=== PATIENT | female | born 1995 | race Caucasian/White ===

== ENCOUNTER 2018-01-17 08:41 | Day surgery (SDC) | payer BC, OTHER ==
[~2018-01-17] VITALS: Ht 162.6 cm; Wt 68.0 kg
[2018-01-17] MEDS ORDERED: ESCI20TA45 (09:06)
[2018-01-17] MEDS ORDERED: NS IV 1000 ML 1,000 ML IV ONE ×2 (09:36→19:15)
[2018-01-17 09:48] LABS: BILIRUBIN,URINE NEGATIVE (NEGATIVE); CLARITY,URINE CLEAR; COLOR,URINE YELLOW; GLUCOSE, URINE (UA) NEGATIVE (NEGATIVE); KETONES,URINE NEGATIVE (NEGATIVE); LEUKOCYTE ESTERASE ,URINE NEGATIVE (NEGATIVE); NITRITE,URINE NEGATIVE (NEGATIVE); PH,URINE 7 (5-9); PROTEIN,URINE NEGATIVE (NEGATIVE); UROBILINOGEN,URINE NORMAL (NORMAL)
[2018-01-17 09:56] LABS: BASOPHILS % (AUTO) 0 % (0-10); EOSINOPHILS # (AUTO) 0.1 10^3/uL (0.0-0.3); EOSINOPHILS % (AUTO) 1 % (0-10); HEMATOCRIT 41 % (35-52); HEMOGLOBIN 14.5 G/DL (11.5-16.0); LYMPHOCYTES % (AUTO) 19 % (12-44); MEAN CORPUSCULAR HEMOGLOBIN 30 PG (25-34); MEAN CORPUSCULAR HGB CONC 35 G/DL (32-36); MEAN CORPUSCULAR VOLUME 84 FL (80-99); MEAN PLATELET VOLUME 10.3 FL (7.4-10.4); MONOCYTES # (AUTO) 0.9 X 10^3 (0.0-1.0); MONOCYTES % (AUTO) 8 % (0-12); NEUTROPHILS % (AUTO) 73 % (42-75); PLATELET COUNT 291 10^3/uL (130-400); RED BLOOD COUNT 4.92 10^6/uL (4.35-5.85); RED CELL DISTRIBUTION WIDTH 12.5 % (10.0-14.5)
[2018-01-17 09:57] LABS: WBC,URINE RARE /HPF
[2018-01-17 09:58] LABS: BACTERIA,URINE FEW /HPF
[2018-01-17] MEDS ORDERED: fentaNYL INJECTION 100 MCG/2 ML AMP IVP PRN (10:00)
--- NOTE | 2018-01-17 10:09 | ED Abdominal Pain ---
General Chief Complaint: Abdominal/GI Problems Stated Complaint: RIGHT LOWER ABD PAIN, NAUSEA Nursing Triage Note: TO ROOM C/O R LOWER ABD PAIN ONSET YESTERDAY PAIN WORSE WHEN CRAMPING STARTS BEFORE SHE HAS DIARRHEA. Sepsis Screen: No Definite Risk Source of Information: Patient Exam Limitations: No Limitations History of Present Illness Date Seen by Provider: Jan 17, 2018 Time Seen by Provider: 09:30 Initial Comments Here with right lower quadrant bowel pain over the last 2 days. Worse when she gets diarrhea. Reports that it does hurt when she walks and it did hurt on the car ride over. She still has her appendix. Last menstrual period approximately 3 weeks ago. Denies fevers or vomiting currently. Denies dysuria but states that it is more difficult to urinate. Timing/Duration: 1-2 Days Severity/Quality: Moderate, Aching, Cramping Location: RLQ Radiation: No Radiation Activities at Onset: None Modifying Factors: Worsens With Defecating; Improves With Resting Associated Symptoms: No Back Pain, No Chest Pain, No Fever/Chills, No Nausea/ Vomiting, No Shortness of Air, No Swelling/Mass in Abdomen, No Weakness Allergies and Home Medications Allergies Coded Allergies: No Known Drug Allergies (Unverified , 01/17/18) Patient Home Medication List Home Medication List Reviewed: Yes Review of Systems Constitutional: see HPI; No chills, No fever EENTM: No Symptoms Reported Respiratory: No Symptoms Reported Cardiovascular: No Symptoms Reported Gastrointestinal: See HPI, Abdominal Pain, Diarrhea; Denies Vomiting Genitourinary: See HPI Musculoskeletal: no symptoms reported All Other Systems Reviewed Negative Unless Noted: Yes Past Apvnhkw-Khfpew-Wytpbv Hx Past Med/Social Hx: Reviewed Nursing Past Med/Soc Hx Patient Social History Alcohol Use: Denies Use Recreational Drug Use: No Smoking Status: Never a Smoker Recent Foreign Travel: No Contact w/Someone Who Travel: No Recent Infectious Disease Expo: No Past Medical History Surgeries: No Respiratory: No Cardiac: No Neurological: No : No Last Menstrual Period: December 27, 2017 Genitourinary: No Gastrointestinal: No Musculoskeletal: No Endocrine: No HEENT: No Cancer: No Psychosocial: Yes Anxiety, Depression Integumentary: No Family Medical History Reviewed Nursing Family Hx Physical Exam Vital Signs Vital Signs - First Documented 01/17/18 08:50 Temp 98.7 Pulse 100 B/P (MAP) 112/72 (85) Pulse Ox 98 O2 Delivery Room Air Capillary Refill : Less Than 3 Seconds General Appearance: WD/WN, no apparent distress Respiratory: lungs clear, normal breath sounds Cardiovascular: regular rate, rhythm, no murmur Gastrointestinal: soft, guarding, rebound, tenderness (findings on right lower quadrant) Extremities: non-tender, normal inspection Back: normal inspection, no CVA tenderness, no vertebral tenderness Neurologic/Psychiatric: alert, oriented x 3 Skin: normal color, warm/dry Progress/Results/Core Measures Results/Orders Lab Results Laboratory Tests Test 01/17/18 09:31 01/17/18 09:48 Range/Units Urine Color YELLOW Urine Clarity CLEAR Urine pH 7 5-9 Urine Specific [place] 1.010 L 1.016-1.022 Urine Protein NEGATIVE NEGATIVE Urine Glucose (UA) NEGATIVE NEGATIVE Urine Ketones NEGATIVE NEGATIVE Urine Nitrite NEGATIVE NEGATIVE Urine Bilirubin NEGATIVE NEGATIVE Urine Urobilinogen NORMAL NORMAL MG/DL Urine Leukocyte Esterase NEGATIVE NEGATIVE Urine RBC (Auto) NEGATIVE NEGATIVE Urine RBC NONE /HPF Urine WBC RARE /HPF Urine Squamous Epithelial Cells 5-10 /HPF Urine Crystals NONE /LPF Urine Bacteria FEW H /HPF Urine Casts NONE /LPF Urine Mucus NEGATIVE /LPF Urine Culture Indicated NO White Blood Count 11.0 4.3-11.0 10^3/uL Red Blood Count 4.92 4.35-5.85 10^6/uL Hemoglobin 14.5 11.5-16.0 G/DL Hematocrit 41 35-52 % Mean Corpuscular Volume 84 80-99 FL Mean Corpuscular Hemoglobin 30 25-34 PG Mean Corpuscular Hemoglobin Concent 35 32-36 G/DL Red Cell Distribution Width 12.5 10.0-14.5 % Platelet Count 291 130-400 10^3/uL Mean Platelet Volume 10.3 7.4-10.4 FL Neutrophils (%) (Auto) 73 42-75 % Lymphocytes (%) (Auto) 19 12-44 % Monocytes (%) (Auto) 8 0-12 % Eosinophils (%) (Auto) 1 0-10 % Basophils (%) (Auto) 0 0-10 % Neutrophils # (Auto) 8.0 H 1.8-7.8 X 10^3 Lymphocytes # (Auto) 2.0 1.0-4.0 X 10^3 Monocytes # (Auto) 0.9 0.0-1.0 X 10^3 Eosinophils # (Auto) 0.1 0.0-0.3 10^3/uL Basophils # (Auto) 0.0 0.0-0.1 10^3/uL Sodium Level 138 135-145 MMOL/L Potassium Level 4.0 3.6-5.0 MMOL/L Chloride Level 107 98-107 MMOL/L Carbon Dioxide Level 21 21-32 MMOL/L Anion Gap 10 5-14 MMOL/L Blood Urea Nitrogen 10 7-18 MG/DL Creatinine 0.71 0.60-1.30 MG/DL Estimat Glomerular Filtration Rate > 60 BUN/Creatinine Ratio 14 Glucose Level 85 70-105 MG/DL Calcium Level 9.3 8.5-10.1 MG/DL Total Bilirubin 0.5 0.1-1.0 MG/DL Aspartate Amino Transf (AST/SGOT) 16 5-34 U/L Alanine Aminotransferase (ALT/SGPT) 13 0-55 U/L Alkaline Phosphatase 51 40-136 U/L Total Protein 7.4 6.4-8.2 GM/DL Albumin 4.6 H 3.2-4.5 GM/DL My Orders Orders - JAILENE ENG MD Urine Bedside (01/17/18 09:36) Cbc With Automated Diff (01/17/18 09:36) Comprehensive Metabolic Panel (01/17/18 09:36) Ua Culture If Indicated (01/17/18 09:36) Ct Abd/Pelv W (Appendicitis) (01/17/18 09:36) Saline Lock/Iv-Start (01/17/18 09:36) Ns Iv 1000 Ml (Sodium Chloride 0.9%) (01/17/18 09:36) Fentanyl Injection (Sublimaze Injection (01/17/18 10:00) Iohexol Injection (Omnipaque 350 Mg/Ml 1 (01/17/18 10:15) Ns (Ivpb) (Sodium Chloride 0.9%) (01/17/18 10:15) Medications Given in ED Current Medications Medications Dose Ordered Sig/Estella Route Start Time Stop Time Status Last Admin Dose Admin Fentanyl Citrate 25 mcg ONCE PRN IVP 01/17/18 10:00 01/17/18 10:03 25 MCG Iohexol 100 ml ONCE ONCE IV 01/17/18 10:15 01/17/18 10:17 DC 6/9/18 10:18 100 ML Sodium Chloride 250 ml ONCE ONCE IV 01/17/18 10:15 01/17/18 10:17 DC 01/17/18 10:18 80 ML Sodium Chloride 1,000 ml @ 0 mls/hr Q0M ONCE IV 01/17/18 09:36 01/17/18 09:40 DC 01/17/18 09:54 1,000 MLS/HR Vital Signs/I&O 01/17/18 08:50 Temp 98.7 Pulse 100 B/P (MAP) 112/72 (85) Pulse Ox 98 O2 Delivery Room Air Blood Pressure Mean: 85 Urine -Bedside: Negative Progress Progress Note : Progress Note Seen and evaluated. IV, labs and UA ordered. UCG ordered. CT abdomen and pelvis appendicitis protocol ordered. Normal saline 1 L bolus. Fentanyl 50 g IV ordered. Monitor patient.1052: Discussed case with Dr. Garcia. Likely OR here this afternoon. All findings concerns as discussed with patient and family who agree. Dr. Garcia to see patient in the ER and set up OR arrangements. Diagnostic Imaging Diagonstic Imaging: CT Plain Films/CT/US/NM/MRI: abdomen, pelvis Comments NAME: [facility] REC#: [id number] PT STATUS: REG ER : 1995 PHYSICIAN: JAILENE ENG MD ADMIT DATE: 01/17/18/ER Signed Date of Exam: 01/17/18 CT ABD/PELV W (APPENDICITIS) PROCEDURE: CT abdomen and pelvis with contrast, rule out appendicitis. TECHNIQUE: Multiple contiguous axial images were obtained through the abdomen and pelvis after the administration of intravenous contrast. INDICATION: Right lower quadrant pain. COMPARISON: None available. FINDINGS: Lower chest: The lung bases are clear. No pericardial or pleural effusion. Peritoneum: Trace simple free pelvic fluid is likely physiologic given patient's age. Liver and biliary system: The liver is normal. The gallbladder is normal. No biliary duct dilation. Spleen and Pancreas: Spleen is normal. The pancreas enhances normally without mass lesion or peripancreatic inflammatory changes. Adrenals: Normal. tract: The kidneys enhance normally without suspicious mass or obstruction. Urinary bladder is distended without wall thickening. There are a few benign cysts in both kidneys with the largest in the lower pole on the right measuring 1.5 x 1.5 cm. The uterus and ovaries are physiologic in appearance. GI tract: Stomach is partially distended with fluid and there is no wall thickening. No bowel obstruction. The appendix is mildly dilated measuring 7 mm and has abnormal enhancement indicative of acute appendicitis. No perforation or abscess formation. Vasculature and Lymph nodes: Normal caliber aorta. No abdominal or pelvic lymphadenopathy. A few conspicuous but nonenlarged right lower quadrant mesenteric lymph nodes are likely reactive in nature. Musculoskeletal: No concerning osseous lesion. IMPRESSION: 1. Acute appendicitis is uncomplicated. Specifically, no perforation, abscess or bowel obstruction. Dictated by: Dictated on workstation # [id number] Dict: 01/17/18 1029 Trans: 01/17/18 1039 Interpreted by: STEFFANY DUNCAN MD Electronically signed by: STEFFANY DUNCAN MD 01/17/18 1039 Departure Impression Primary Impression: Appendicitis Qualified Codes: K35.3 - Acute appendicitis with localized peritonitis Disposition: ADMITTED INPATIENT Condition: Stable Admissions Decision to Admit Reason: Admit from ER (General) Decision to Admit/Date: Jan 17, 2018 Time/Decision to Admit Time: 10:52 Departure-Patient Inst. Referrals: NO,LOCAL PHYSICIAN (PCP) Primary Care Physician JAILENE ENG MD Jan 17, 2018 10:08
[2018-01-17 10:13] LABS: ALANINE AMINOTRANSFERASE 13 U/L (0-55); ALBUMIN 4.6 GM/DL (3.2-4.5); ALKALINE PHOSPHATASE 51 U/L (40-136); BILIRUBIN,TOTAL 0.5 MG/DL (0.1-1.0); BUN/CREATININE RATIO 14; CALCIUM 9.3 MG/DL (8.5-10.1); CARBON DIOXIDE 21 MMOL/L (21-32); CHLORIDE 107 MMOL/L (98-107); CREATININE SERUM 0.71 MG/DL (0.60-1.30); GFR ESTIMATED > 60; GLUCOSE 85 MG/DL (70-105); SODIUM 138 MMOL/L (135-145); TOTAL PROTEIN 7.4 GM/DL (6.4-8.2)
[2018-01-17] MEDS ORDERED: IOHEXOL 350 MG/ML 100 ML (OMNIPAQUE 350) VIAL IV ONE (10:15)
[2018-01-17] MEDS ORDERED: NS 250 ML (IVPB) BAG IV ONE (10:15)
--- NOTE | 2018-01-17 10:36 | Diagnostic Imaging Report ---
PROCEDURE: CT abdomen and pelvis with contrast, rule out appendicitis. TECHNIQUE: Multiple contiguous axial images were obtained through the abdomen and pelvis after the administration of intravenous contrast. INDICATION: Right lower quadrant pain. COMPARISON: None available. FINDINGS: Lower chest: The lung bases are clear. No pericardial or pleural effusion. Peritoneum: Trace simple free pelvic fluid is likely physiologic given patient's age. Liver and biliary system: The liver is normal. The gallbladder is normal. No biliary duct dilation. Spleen and Pancreas: Spleen is normal. The pancreas enhances normally without mass lesion or peripancreatic inflammatory changes. Adrenals: Normal. tract: The kidneys enhance normally without suspicious mass or obstruction. Urinary bladder is distended without wall thickening. There are a few benign cysts in both kidneys with the largest in the lower pole on the right measuring 1.5 x 1.5 cm. The uterus and ovaries are physiologic in appearance. GI tract: Stomach is partially distended with fluid and there is no wall thickening. No bowel obstruction. The appendix is mildly dilated measuring 7 mm and has abnormal enhancement indicative of acute appendicitis. No perforation or abscess formation. Vasculature and Lymph nodes: Normal caliber aorta. No abdominal or pelvic lymphadenopathy. A few conspicuous but nonenlarged right lower quadrant mesenteric lymph nodes are likely reactive in nature. Musculoskeletal: No concerning osseous lesion. IMPRESSION: 1. Acute appendicitis is uncomplicated. Specifically, no perforation, abscess or bowel obstruction. Dictated by: Dictated on workstation # [id number]
[2018-01-17] MEDS ORDERED: ROCURONIUM 10 MG/ML 5 ML SYRINGE IV ONE (11:28)
[2018-01-17] MEDS ORDERED: DEXAMETHASONE 10 MG/ML (DECADRON) 1 ML VIAL ONE (11:28)
[2018-01-17] MEDS ORDERED: proPOfol 200 MG/20 ML (DIPRIVAN) VIAL IV ONE (11:28)
[2018-01-17] MEDS ORDERED: ONDANSETRON 4 MG/2 ML (SDV) Z0FRAN ONE (11:28)
[2018-01-17] MEDS ORDERED: LIDOCAINE PF 2% 5 ML (XYLOCAINE) VIAL ONE (11:28)
[2018-01-17] MEDS ORDERED: SEVOFLURANE (ULTANE) 15 ML INHAL SOLN ONE (11:28)
[2018-01-17] MEDS ORDERED: MIDAZOLAM 2 MG/2 ML (VERSED) VIAL ONE (11:29)
[2018-01-17] MEDS ORDERED: fentaNYL INJECTION 100 MCG/2 ML AMP ONE ×2 (11:29→12:26)
[2018-01-17] MEDS ORDERED: BUP/EPI 0.5% 1:200,000 (SENSORCAINE) 30 ML VIAL ONE (11:35)
--- NOTE | 2018-01-17 11:42 | HISTORY AND PHYSICAL ---
DATE OF SERVICE: HISTORY OF PRESENT ILLNESS: The patient is a 22-year-old female, who presents with a 3-day history of right lower abdominal quadrant pain. She states that this was initially mild; however, this worsened over time. She does not report any fever nor chills. She does report a few episodes of diarrhea. A CT scan was performed, which did show dilatation as well as a mild inflammation of the appendix consistent with an appendicitis. PAST MEDICAL HISTORY: Anxiety, depression. PAST SURGICAL HISTORY: None. ALLERGIES: No known drug allergies. MEDICATIONS: Escitalopram 20 mg daily. SOCIAL HISTORY: Negative smoke, negative alcohol. FAMILY HISTORY: Noncontributory. REVIEW OF SYSTEMS: Well-nourished female, in no acute distress. She is not experiencing shortness of breath or difficulty breathing. No chest pain, palpitations, diaphoresis. No nausea, vomiting with intermittent episodes of diarrhea, no red blood per rectum, no dark tarry stools. No fever or chills, no recent inadvertent weight loss. PHYSICAL EXAMINATION: VITAL SIGNS: Temperature is 98.7, blood pressure 112/72, pulse 100, and pulse ox 98% on room air. CHEST: Clear. Good breath sounds bilaterally. HEART: Regular, no murmurs. HEENT: No scleral icterus. No cervical lymphadenopathy. ABDOMEN: Soft, nondistended. There is pain in the right lower abdominal quadrant at McBurney point with voluntary guarding, no rebound. SKIN: Warm, dry. LABORATORY DATA: WBC is 11.0, hemoglobin 14.5, hematocrit 41, and platelets 291. ASSESSMENT AND PLAN: A 22-year-old female with acute appendicitis. We will admit her and proceed with the diagnostic laparoscopy and laparoscopic appendectomy. Job ID: [id number] DocumentID: [id number] Dictated Date: 01/17/2018 11:06:41 Media Marketing Coordinator Date: 01/17/2018 11:41:41 Dictated By: MARCO JUNIOR MD
[2018-01-17] MEDS ORDERED: ceFAZolin 1,000 MG (ANCEF) VIAL ONE (11:56)
[2018-01-17] MEDS ORDERED: ceFAZolin INJECTION 1,000 MG in NS (IVPB) 50 ML IV ONE (12:00)
[2018-01-17] MEDS ORDERED: ONDANSETRON 4 MG/2 ML (SDV) Z0FRAN IVP PRN ×2 (12:00→12:15)
[2018-01-17] MEDS ORDERED: LACTATED RINGERS 1,000 ML IV PRN (12:00)
[2018-01-17] MEDS ORDERED: MEPERIDINE (DEMEROL) INJ 50 MG/ML IVP PRN (12:00)
--- NOTE | 2018-01-17 12:03 | Progress Note-Pre Operative ---
Pre-Operative Progress Note H&P Reviewed The H&P was reviewed, patient examined and no changes noted. Date Seen by Provider: Jan 17, 2018 Time Seen by Provider: 11:30 Date H&P Reviewed: Jan 17, 2018 Time H&P Reviewed: 11:30 Pre-Operative Diagnosis: acute appendicitis MARCO JUNIOR MD Jan 17, 2018 12:03 pm
[2018-01-17] MEDS ORDERED: ACETAMINOPHEN 325 MG TABLET/CAPLET (TYLENOL) PO PRN (12:15)
[2018-01-17] MEDS ORDERED: HYDROcodone/APAP 5 MG/325 MG (LORTAB) TAB PO ONE (12:15)
[2018-01-17] MEDS ORDERED: ALBUTEROL INHALER HFA (VENTOLIN HFA) 8 GM IH ONE (12:26)
[2018-01-17] MEDS ORDERED: NEOSTIGMINE 1 MG/ML 5 ML SYRINGE ONE (12:45)
[2018-01-17] MEDS ORDERED: GLYCOPYRROLATE 0.2 MG/ML (ROBINUL) 2 ML VIAL ONE (12:45)
--- NOTE | 2018-01-17 12:52 | Progress Note-Post Operative ---
Post-Operative Progess Note Surgeon (s)/Cloth Piecer (s) Surgeon MARCO JUNIOR MD Cloth Piecer: elmer serrato MANAGER ASSEMBLY Pre-Operative Diagnosis acute appendicitis Post-Operative Diagnosis same Procedure & Operative Findings Date of Procedure 01/17/18 Procedure Performed/Findings laparoscopic appendectomy Anesthesia Type GET Estimated Blood Loss Estimated blood loss (mL): minimal Specimens/Packing Specimens Removed appendix MARCO JUNIOR MD Jan 17, 2018 12:52 pm
[2018-01-17] MEDS ORDERED: HYDR-34 PO (12:54)
--- NOTE | 2018-01-17 12:55 | Discharge Inst-Surgical ---
D/C Lap Instructions-VERNON New, Converted, or Re-Newed RX: RX on Chart Follow Up Appt in 2 weeks Activity as tolerated No driving for 24 hours No driving while on pain medications Incentive Spirometry use every 2 hours while awake Regular Diet Symptoms to Report: Fever over 101 degree F, Nausea/Vomiting Infection Signs and Symptoms to report: Increased redness, Foul odor of wound, Increased drainage Bathing instructions: May shower Operative Area Clean/Dry; Keep incision clean/dry If any problems/questions: Contact your physician or go to Emergency Room MARCO JUNIOR MD Jan 17, 2018 12:55 pm
[2018-01-17] MEDS: morphine INJ 10 MG/ML 1ML (SYR OR VIAL) IVP PRN ×6 (13:15→20:33)
[2018-01-17 13:55] VITALS: BP 126/93
[2018-01-17] MEDS: HYDROcodone/APAP 5 MG/325 MG (LORTAB) TAB PO PRN ×2 (15:36→17:35)
[2018-01-17 15:57] VITALS: BP 110/70
--- NOTE | 2018-01-17 18:20 | OPERATIVE REPORT ---
DATE OF SERVICE: ATTENDING CALENDER SUPERVISOR: Chel Bethea MD PREOPERATIVE DIAGNOSIS: Acute appendicitis. POSTOPERATIVE DIAGNOSIS: Acute appendicitis. PROCEDURE: Laparoscopic appendectomy. SURGEON: Marco Junior MD TOOL MAKER: Rene Mckenzie APRN ANESTHESIA: General endotracheal. ESTIMATED BLOOD LOSS: Minimal. FINDINGS: Hqhm-on-ycugfmog inflammation of the appendix with dilatation, no signs of perforation. Uterus and ovaries appeared normal. DISPOSITION: The patient tolerated the procedure well. INDICATIONS: The patient is a 22-year-old female who presented with a 2-day history of pain in the right lower abdominal quadrant. She states that this was initially mild, however, progressed over time. It became more localized and intense in nature and was described as sharp pain. She did report a few episodes of diarrhea; however, no nausea, no vomiting as well as no fever, no chills. A CT scan was performed, which did show an inflamed appendix consistent with acute appendicitis; however, no perforation. DESCRIPTION OF PROCEDURE: The patient was brought to the operating room, laid supine on the table. After adequate IV pain and sedating medications and general endotracheal intubation, the abdomen was prepped and draped in standard surgical fashion. A 0.5% Marcaine with epinephrine was used to anesthetize the overlying skin in the left upper abdominal quadrant. A small transverse skin incision was made using a 15 blade. An 0 silk suture was applied to the medial aspect of the incision for retraction and a Veress needle inserted with a low opening pressure of 0 mmHg and the abdomen was then insufflated to 15 mmHg pressure. The Veress needle was removed and a 5 mm Xcel trocar placed followed by a 5 mm 45 degree angle laparoscope visualizing the peritoneal cavity. A 4-quadrant abdominal exploration was performed. There was inflammation of the appendix with no signs of perforation as well as no fluid collection or abscess. It was visualized that the bilateral ovaries and uterus was normal. Under direct visualization, we then proceeded to place a supraumbilical 10 mm port after the skin and peritoneal lining were anesthetized using 0.5% Marcaine with epinephrine and a transverse skin incision was made using a 15 blade. In a similar manner, a suprapubic 5 mm port was placed. The patient was then placed in Trendelenburg position as well as plane right side up, left side down. The appendix was then retracted towards the anterior abdominal wall and a window created between the mesoappendix and the cecal base using a [place] dissector. A GINGER 45 mm stapler with a 2.5 mm thickness load was then used to staple and transect the appendix at its cecal base. The mesoappendix was then stapled and transected with the same stapler with 2.0 mm thickness reload with visualization of good hemostasis. The appendix was removed through the 10 mm port site using an EndoCatch bag. The 10 mm port site fascia and peritoneum were then closed under direct visualization using a Josh-Reynaldo device and 0 Vicryl suture. The abdomen was desufflated and the remaining ports removed. All skin incisions were closed using 4-0 Monocryl running subcuticular sutures. Wounds were then cleaned and covered with Dermabond. The patient tolerated the procedure well. We will start IV and oral pain medication as well as a clear liquid diet. Once she is tolerating clears, has good pain control with oral pain medications, ambulating well, we will discharge her home. She will be instructed to do no heavy lifting or exertion for the next two weeks. Job ID: [id number] DocumentID: [id number] Dictated Date: 01/17/2018 13:01:12 Community Development Planner Date: 01/17/2018 18:19:40 Dictated By: MARCO JUNIOR MD [facility] MED[facility] CENTERCarolee
[2018-01-17] MEDS ORDERED: NS IV 1000 ML 1,000 ML ONE (19:14)
[2018-01-17] MEDS ORDERED: IBUPROFEN 600 MG (MOTRIN) TAB PO ONE (19:14)
[2018-01-17 19:15] VITALS: BP 105/60
[2018-01-17] MEDS ORDERED: PROMETHAZINE INJ 25 MG/ML (PHENERGAN) AMP IVP PRN (19:15)
[2018-01-17] MEDS ORDERED: IBUPROFEN 600 MG (MOTRIN) TAB PO PRN (19:15)
[2018-01-18] VITALS: BP 106/67
[2018-01-18 00:10] VITALS: BP 106/67
--- NOTE | 2018-01-18 13:10 | Anesthesia-General Post-Op ---
General Patient Condition Mental Status/LOC: Same as Preop Cardiovascular: Satisfactory Nausea/Vomiting: Absent Respiratory: Satisfactory Pain: Controlled Complications: Absent Post Op Complications Complications None Follow Up Care/Instructions Patient Instructions None needed. Anesthesia/Patient Condition Patient Condition Patient is doing well, no complaints, stable vital signs, no apparent adverse anesthesia problems. No complications reported per nursing. [place] [facility] [place]: [place] TANO RABAGO CRNA Jan 18, 2018 13:10
== END 2018-01-18 00:10 | disposition home or self-care (01) ==
LOC: ER 08:46 → SDC 11:16 → 4TH 13:55 → SDC 01-18 00:10
PROVIDERS: ATTEND Surgery
DX: K35.80 Unspecified acute appendicitis (principal)
CPT/HCPCS: 36415; 74177; 80053; 81000; 84703; 85025; 88304; 94664; 96361; 96374